=== PATIENT | female | born 1985 | race Caucasian/White ===

== ENCOUNTER 2024-01-17 15:54 | Emergency (ER) | payer MEDICAID ==
[~2024-01-17] VITALS: Ht 154.9 cm; Wt 68.4 kg
[~2024-01-17 15:54] MED LIST: BUPR8TAB SL; CHLO25CA10 PO; CLON-527 PO; GABA-338 PO; HYDR-3965 PO; NAPR-1154 PO; ONDA4TAB6 PO; PANT-47 PO; PENI500T2 PO; PHEN-786 PO; PROM12.512 PO
[2024-01-17 16:37] LABS: BILIRUBIN,URINE NEGATIVE (Neg); CLARITY,URINE CLOUDY (Clear); COLOR,URINE YELLOW (Yellow); GLUCOSE, URINE NEGATIVE (Neg); KETONES,URINE 15 mg/dl (Neg); LEUKOCYTE ESTERASE ,URINE TRACE (Neg); NITRITES, URINE NEGATIVE (Neg); OCCULT BLOOD,URINE NEGATIVE (Neg); PROTEIN,URINE TRACE mg/dl (Neg); UROBILINOGEN,URINE 0.2 E.U/dL (0.2-1.0)
[2024-01-17 16:38] LABS: UA COLLECTION TYPE CLN CATCH MIDSTREAM; URINE HCG NEGATIVE (NEG)
[2024-01-17 16:42] LABS: BACTERIA,URINE 4+ /HPF (Neg); MUCUS STRANDS NONE SEEN /LPF (Neg); RBC,URINE 0-2 /HPF (0-2)
[2024-01-17 16:43] LABS: SQUAMOUS EPITHELIAL CELL,UR NONE SEEN /LPF (FEW); TRANSITIONAL EPI CELLS,URINE FEW /HPF; WBC CLUMPS,URINE FEW /HPF (NEGATIVE)
[2024-01-17] MEDS ORDERED: SULF1TAB45 PO (17:44)
[2024-01-17] MEDS: sulfamethoxazole/trimethoprim DS (800/160mg) tablet PO ONE (17:55)
[2024-01-17 18:02] VITALS: BP 90/66; PULSE 100; RESP 17; TEMP 98.6; O2SAT 99
== END 2024-01-17 18:04 | disposition home or self-care (01) ==
LOC: ER 15:55
DX: N39.0 Urinary tract infection, site not specified (principal); Z20.822 Contact with and (suspected) exposure to COVID-19; F12.90 Cannabis use, unspecified, uncomplicated; F15.90 Other stimulant use, unspecified, uncomplicated; Z88.5 Allergy status to narcotic agent; Z79.899 Other long term (current) drug therapy; Z79.2 Long term (current) use of antibiotics; Z72.89 Other problems related to lifestyle
CPT/HCPCS: 36415; 81001; 81025; 87077; 87088; 87186; 87502; 87503; 87811; 99283